=== PATIENT | female | born 1980 | race Caucasian/White ===

== ENCOUNTER → 2017-06-20 10:10 | Outpatient (CLI) | payer OTHER, SELFPAY ==
[2017-06-21 09:43] LABS: Progesterone Level 19.13 ng/mL (See Comment)
== END ==
PROVIDERS: Visit Provider Obstetrics & Gynecology
DX: N97.0 Female infertility associated with anovulation (principal)
CPT/HCPCS: 36415; 84144

== ENCOUNTER → 2017-07-23 09:49 | Outpatient (CLI) | payer OTHER, SELFPAY ==
[2017-07-24 09:47] LABS: Progesterone Level 10.53 ng/mL (See Comment)
== END ==
PROVIDERS: Visit Provider Obstetrics & Gynecology
DX: N97.0 Female infertility associated with anovulation (principal)
CPT/HCPCS: 36415; 84144

== ENCOUNTER → 2017-09-09 11:10 | Outpatient (CLI) | payer OTHER, SELFPAY ==
--- NOTE | 2017-09-09 11:10 | DT_ITS ---
This patient was seen during an EMR downtime September 02, 2017 - September 09, 2017. This patient may have a combination of paper and electronic documentation or all paper documentation. All documentation is viewable within the e-chart portion of [facility] for each patient visit.
[2017-09-09 14:18] LABS: Chlamydia Trachomatis by PCR Negative (Negative); Neisserai gonorrhoeae by PCR Negative (Negative); Probe Check PASS; Sample Adequacy Control PASS; Specimen Processing Control PASS
== END ==
PROVIDERS: Visit Provider Obstetrics & Gynecology
DX: Z11.3 Encounter for screening for infections with a predominantly sexual mode of transmission (principal)
CPT/HCPCS: 87491; 87591

== ENCOUNTER → 2017-09-19 11:05 | Outpatient (CLI) | payer OTHER, SELFPAY ==
[2017-09-19 12:37] LABS: Color, Urine Straw (Yellow); Glucose, Dipstick Normal (Normal); Ketone-Dipstick Negative (Negative); Leukocyte Esterase-Dipstick Negative /ul (Negative); Nitrite-Dipstick Negative (Negative); Occult Blood-Urine Negative /ul (Negative); Protein-Dipstick Negative (Negative); Specific Gravity, Urine 1.005 (1.002-1.030); Urine Bilirubin Dipstick Negative (Negative); Urine Clarity Sl. Cloudy (Clear); Urine Urobilinogen Normal (Normal)
[2017-09-19 12:46] LABS: Absolute Lymphocyte Count 2.21 X10^3/ul (0.83-4.51); Absolute Neutrophil Count 4.2 X10^3/uL (2.0-7.7); Basophil# 0.02 X10^3/uL; Basophil% 0.3 % (0-1); Eosinophil# 0.08 X10^3/uL; Eosinophils% 1.1 % (0-5); Hematocrit 36.4 % (37-47); Hemoglobin 12.7 g/dl (12.0-15.0); Lymphocyte # 2.21 X10^3/ul (4.0); Lymphocyte % 31.8 % (19-41); Mean Corp Hgb Conc 34.9 g/gl (32-36); Mean Corpuscular Hgb 32.1 pg (27.0-32.0); Mean Corpuscular Volume 91.9 fL (81-99); Mean Platelet Vol. 11.2 fl (6.2-12.0); Monocyte# 0.45 X10^3/uL; Monocyte% 6.5 % (0-10); Neutrophil # 4.19 X10^3/uL (2.7-7.7); Neutrophil % 60.2 % (47-70); Platelet Count 265 K/mm3 (150-450); RBC Distribution Width CV 11.6 % (11.6-14.6); RBC Distribution Width SD 38.9 fl (35.1-43.9); Red Blood Count 3.96 M/mm3 (4.2-5.4)
[2017-09-19 12:49] LABS: POSITIVE COUNT NO; POSITIVE DIFFERENTIAL NO; POSITIVE MORPHOLOGY NO
[2017-09-19 13:08] LABS: Thyroid Stim Hormone (TSH) 0.97 uIU/mL (0.358-3.74)
[2017-09-20 03:47] LABS: Prenatal RPR NONREACTIVE (NONREACTIVE)
[2017-09-20 11:20] LABS: HEPATITIS B SURFACE AG Negative (Negative); Hep C Antibodies <0.1 s/co ratio (0.0-0.9); Toxoplasma Gondii IgG < 3.0 IU/mL (0.0-7.1); Toxoplasma Gondii IgM < 3.0 AU/mL (0.0-7.9)
[2017-09-20 12:09] LABS: HIV - WCH Non-Reactive (Nonreactive); Rubella IgG 12.1 IU/mL
== END ==
PROVIDERS: Visit Provider Obstetrics & Gynecology
DX: Z34.81 Encounter for supervision of other normal pregnancy, first trimester (principal)
CPT/HCPCS: 36415; 81002; 84443; 85025; 86703; 86762; 86777; 86778; 86803; 87340

== ENCOUNTER → 2018-01-14 09:43 | Outpatient (CLI) | payer OTHER, SELFPAY ==
[2018-01-14 11:12] LABS: Hematocrit 32.2 % (37-47); Hemoglobin 11.1 g/dl (12.0-15.0); Mean Corp Hgb Conc 34.5 g/gl (32-36); Mean Corpuscular Hgb 32.1 pg (27.0-32.0); Mean Corpuscular Volume 93.1 fL (81-99); Mean Platelet Vol. 10.6 fl (6.2-12.0); Platelet Count 212 K/mm3 (150-450); RBC Distribution Width CV 12.2 % (11.6-14.6); RBC Distribution Width SD 41.1 fl (35.1-43.9); Red Blood Count 3.46 M/mm3 (4.2-5.4); White Blood Count 7.7 K/mm3 (4.4-11.0)
[2018-01-14 11:13] LABS: Scan Indicated on CBC? Y/N NO
[2018-01-14 11:14] LABS: Glucose Challenge Gest 1H 50g 93 mg/dL (70-140)
== END ==
PROVIDERS: Visit Provider Obstetrics & Gynecology
DX: Z34.83 Encounter for supervision of other normal pregnancy, third trimester (principal)
CPT/HCPCS: 82950; 85027

== ENCOUNTER 2018-04-02 05:30 | Inpatient (IN) | payer OTHER, SELFPAY ==
[2018-03-27 11:13] VITALS: BMI 46.0
[2018-04-02] VITALS (23 sets, daily range): BP systolic 93–126; BP diastolic 47–77; PULSE 65–82; RESP 14–18; TEMP 36.1–37.2; O2SAT 96–100; BMI 46.2
[2018-04-02] MEDS: Lactated Ringers 1,000 ML 999 ML IV (05:55)
[2018-04-02 06:23] LABS: Absolute Lymphocyte Count 2.29 X10^3/ul (0.83-4.51); Absolute Neutrophil Count 5.7 X10^3/uL (2.0-7.7); Basophil# 0.02 X10^3/uL; Basophil% 0.2 % (0-1); Eosinophil# 0.08 X10^3/uL; Eosinophils% 0.9 % (0-5); Hematocrit 31.3 % (37-47); Hemoglobin 10.8 g/dl (12.0-15.0); Lymphocyte # 2.29 X10^3/ul (4.0); Lymphocyte % 26.2 % (19-41); Mean Corp Hgb Conc 34.5 g/gl (32-36); Mean Corpuscular Hgb 31.7 pg (27.0-32.0); Mean Corpuscular Volume 91.8 fL (81-99); Mean Platelet Vol. 10.1 fl (6.2-12.0); Monocyte# 0.62 X10^3/uL; Monocyte% 7.1 % (0-10); Neutrophil # 5.72 X10^3/uL (2.7-7.7); Neutrophil % 65.5 % (47-70); Platelet Count 194 K/mm3 (150-450); RBC Distribution Width CV 12.1 % (11.6-14.6); RBC Distribution Width SD 39.9 fl (35.1-43.9); Red Blood Count 3.41 M/mm3 (4.2-5.4); White Blood Count 8.7 K/mm3 (4.4-11.0)
[2018-04-02 06:26] LABS: POSITIVE COUNT NO; POSITIVE DIFFERENTIAL NO; POSITIVE MORPHOLOGY NO
[2018-04-02 06:31] LABS: Prothrombin Time (Protime)PT. 12.9 SECONDS (11.7-14.9)
[2018-04-02 06:32] LABS: Partial Thromboplast Time 26.4 Seconds (24.1-36.2)
[2018-04-02] MEDS: Lactated Ringers 1,000 ML 150 ML IV (06:55)
[2018-04-02] MEDS: Sodium Citrate/Citric Acid 30 ML UDC PO (06:56)
--- NOTE | 2018-04-02 07:26 | PCM.DCCSEC ---
Discharge Diet: No Restrictions Discharge Activity: May not drive while taking narcotic pain medications., May Shower, May Take a Tub Bath Return to work on:: 05/19/18 May resume sexual activity in: 4-6 weeks Lifting Restrictions: 20 pounds Additional Activity Instructions:: Nothing in the vagina for 4-6 weeks. You may return to work/school in 6 weeks. Change Dressing in (Days):: 7 Remove Dressing in (days):: 7 Cleanse incision/area with: Soap & Water, Keep Dressing Clean & Dry Additional Instructions: If you experience any of the following, contact your healthcare provider. Bleeding that soaks a pad every hour for 2 hours Fever 100.4 or higher Unrelieved incision or abdominal pain Swelling, redness, discharge or bleeding from your incision Problems urinating (including inability to urinate or burning while urinating). Visual changes Severe headache Flu-like symptoms Pain or redness in one of both of your breasts Pain, warmth, tenderness or swelling in your legs, especially the calf area Frequent nausea and vomiting Symptoms of depression or anxiety If you experience any of the following, call 911 or go to the nearest Emergency Room. Chest pain Problems breathing Seizure activity Partial or complete paralysis of a body part, slurred speech, weakness or drooping of the face, or a sudden inability to walk or hold your balance Allergies/Adverse Reactions: Allergies No Known Allergies Allergy (Verified 04/02/18 06:17) Medications to take at Discharge Multivitamins,Therapeutic [Multivitamin] 1 tablet PO DAILY 06/03/13 Docusate Sodium [Colace] 100 mg PO BID #30 capsule 04/02/18 Naproxen [Naprosyn] 250 - 500 mg PO TID PRN PRN #30 tablet 04/02/18 Oxycodone HCl/Acetaminophen [Percocet 5-325] 1 - 2 tablet PO Q4H PRN PRN 7 Days #20 tablet 04/02/18 Polyethylene Glycol 3350 [Miralax] 17 gm PO DAILY PRN #14 packet 04/02/18 The following prescriptions were given: Oxycodone HCl/Acetaminophen [Percocet 5-325] 1 - 2 tablet PO Q4H PRN PRN 7 Days #20 tablet PRN Reason: Moderate Pain Naproxen [Naprosyn] 250 - 500 mg PO TID PRN PRN #30 tablet PRN Reason: Mild-Mod Pain (1-08/08) Polyethylene Glycol 3350 [Miralax] 17 gm PO DAILY PRN #14 packet PRN Reason: Constipation Docusate Sodium [Colace] 100 mg PO BID #30 capsule Follow-Up: Call to make an appointment with your doctor for an incision check in 1-2 weeks. You will also need a 6 week post- follow up appointment. Test results from this visit will be discussed in further detail at your follow-up appointment, if applicable. Please Follow Up With: Nanci Tong MD - [phone] When: Call to make an appointment for an incision check in 2 weeks. Primary Care Physician: Angi Kearney MD [Primary Care Provider] - Proposed Discharge Date: 04/04/18
--- NOTE | 2018-04-02 07:30 | DCINST_ITS ---
Discharge Diet: No Restrictions Discharge Activity: May not drive while taking narcotic pain medications., May Shower, May Take a Tub Bath Return to work on:: 05/19/18 May resume sexual activity in: 4-6 weeks Lifting Restrictions: 20 pounds Additional Activity Instructions:: Nothing in the vagina for 4-6 weeks. You may return to work/school in 6 weeks. Change Dressing in (Days):: 7 Remove Dressing in (days):: 7 Cleanse incision/area with: Soap & Water, Keep Dressing Clean & Dry Additional Instructions: If you experience any of the following, contact your healthcare provider. * Bleeding that soaks a pad every hour for 2 hours * Fever 100.4 or higher * Unrelieved incision or abdominal pain * Swelling, redness, discharge or bleeding from your incision * Problems urinating (including inability to urinate or burning while urinating). * Visual changes * Severe headache * Flu-like symptoms * Pain or redness in one of both of your breasts * Pain, warmth, tenderness or swelling in your legs, especially the calf area * Frequent nausea and vomiting * Symptoms of depression or anxiety If you experience any of the following, call 911 or go to the nearest Emergency Room. * Chest pain * Problems breathing * Seizure activity * Partial or complete paralysis of a body part, slurred speech, weakness or drooping of the face, or a sudden inability to walk or hold your balance Allergies/Adverse Reactions: Allergies No Known Allergies Allergy (Verified 04/02/18 06:17) Medications to take at Discharge Multivitamins,Therapeutic [Multivitamin] 1 tablet PO DAILY 06/03/13 Docusate Sodium [Colace] 100 mg PO BID #30 capsule 04/02/18 Naproxen [Naprosyn] 250 - 500 mg PO TID PRN PRN #30 tablet 04/02/18 Oxycodone HCl/Acetaminophen [Percocet 5-325] 1 - 2 tablet PO Q4H PRN PRN 7 Days #20 tablet 04/02/18 Polyethylene Glycol 3350 [Miralax] 17 gm PO DAILY PRN #14 packet 04/02/18 The following prescriptions were given: Oxycodone HCl/Acetaminophen [Percocet 5-325] 1 - 2 tablet PO Q4H PRN PRN 7 Days #20 tablet PRN Reason: Moderate Pain Naproxen [Naprosyn] 250 - 500 mg PO TID PRN PRN #30 tablet PRN Reason: Mild-Mod Pain (-08/08) Polyethylene Glycol 3350 [Miralax] 17 gm PO DAILY PRN #14 packet PRN Reason: Constipation Docusate Sodium [Colace] 100 mg PO BID #30 capsule Follow-Up: Call to make an appointment with your doctor for an incision check in 1-2 weeks. You will also need a 6 week post- follow up appointment. Test results from this visit will be discussed in further detail at your follow- up appointment, if applicable. Please Follow Up With: Nanci Tong MD - [phone] When: Call to make an appointment for an incision check in 2 weeks. Primary Care Physician: Angi Kearney MD [Primary Care Provider] - Proposed Discharge Date: 04/04/18
--- NOTE | 2018-04-02 07:45 | PLAC_PTH ---
PATIENT: GADIEL HYDE LOC: [facility] U#:[id number] AGE/SX: 37/F ROOM: WP004 RE04/02/[address]: Dr. Nanci Tong MD : 1980 BED: 1 DIS: 04/04/2018 SPEC #: [id number] RECD: 04/02/18 09:11 STATUS: LALIT LUZ #: [id number] RADHA: 04/02/18 07:[address]: Nanci Tong DEPT: SURGICAL PATHOLOGY RECD BY: Tejas Fournier ENTERED: 04/02/18 10:15 SP TYPE: PLACENTA OTHR DR: Dr. Angi Kearney MD Tissues: A - Placenta, NOS B - Fallopian tube Procedures: Surgery Specimen Level II Surgery Specimen Level V HEADER OPERATION: Repeat section; tubal ligation PRE-OP DIAGNOSIS: Baby with ventriculomegaly and dangling choroid plexus TISSUE SUBMITTED: A - Placenta, B - Fallopian tubes, suture in left tube MICROSCOPIC DIAGNOSIS A. Placenta: Placental disc - third trimester placenta (646 gm). - Focal increased intervillous and perivillous fibrin deposition. Membranes - no pathologic diagnosis. Umbilical cord - three blood vessels and no pathologic diagnosis. See comment. B. Bilateral fallopian tubes, tubal ligation: Completely transected segments of bilateral fallopian tubes, no pathologic diagnosis. SJ:moises 04/04/18 COMMENT A. Results of cytogenetic study will be reported separately. MICROSCOPIC DESCRIPTION Slides are reviewed. GROSS DESCRIPTION A - SPECIMEN: PLACENTA / CLINICAL INFORMATION: A. Weight: 3.639 kg B. Gestational Age: 39 weeks C. Sex: Female PLACENTAL WEIGHT (POST FIXATION): 646 gm PLACENTAL DIMENSIONS: 20 x 15 x 3 cm PLACENTAL SHAPE: Usual ovoid PLACENTAL WEIGHT FOR GESTATIONAL AGE: >99th percentile MEMBRANES - Present A. Insertion: Marginal B. Site of rupture from edge: At edge of placental disc and partly fragmented. C. Color of membrane: Rowley-pastrana D. Abnormalities: None UMBILICAL CORD - Present A. Color: Rowley-pastrana B. Insertion: Paracentral C. Length: 39 cm D. Diameter: 1.2 cm E. Number of vessels: Three F. Abnormalities: None PLACENTAL DISC - Present A. Color of surface: Rowley-pastrana B. surface abnormalities: None C. Maternal cotyledons: Intact with minimal tears D. Attached retro placental clot: No clot E. Cut surface: Dark red and spongy F. Lesions: None G. Separate clot: Absent SECTIONS SUBMITTED: 1. Membrane roll 2. Cord, maternal end 3. Cord, end 4. Placental disc, and maternal surfaces 5. Placental disc, and maternal surfaces 6. Placental disc, and maternal surfaces A section is also submitted for cytogenetic studies. KELSEY:moises 04/03/18 B - Received is one container labeled with the patient's name and designated bilateral fallopian tubes (left suture). The specimen consists of two tubular pieces of rowley soft tissue with the left tube identified by a suture. The left fallopian tube measures 2 cm in length and 0.7 cm in diameter and inked black. The right tube measures 2 cm in length and 0.6 cm in diameter. The entire specimen is submitted in one cassette. Both pieces will be sectioned at the time of embedding. / KELSEY:moises 04/02/18 TC:5 CPT: 71107, 77788 x2 ADDENDUM ADDENDUM ADDENDUM ADDENDUM ADDENDUM ADDENDUM ADDENDUM ADDENDUM ADDENDUM ADDENDUM 04/17/2018 09:40 ADDENDUM 04/17/2018 09:40 ADDENDUM 04/17/2018 09:40 ADDENDUM 04/17/2018 09:40 ADDENDUM 04/17/2018 09:40 CYTOGENETICS REPORT FROM locr INTERPRETATION AND COMMENTS: Karyotype: 46,XX A normal female karyotype was observed in twenty metaphases analyzed. Please see complete report in e-chart or EMR for further details
[2018-04-02] MEDS: Oxytocin 30 units/NS 500 ml 30 UNITS/500 ML IV.SOLN 167 UNITS IV (07:54)
[2018-04-02] MEDS: Methylergonovine 0.2 MG/ML Ampul IM (10:08)
[2018-04-02] MEDS: proMETHazine 25 MG/ML Syringe 12.5 MG IV (10:53)
--- NOTE | 2018-04-02 12:21 | OP.PCM_ITS ---
Operative Report Date of Procedure: 04/02/18 PROCEDURE: Repeat C section. Bilateral Partial Salpingectomy Preoperative diagnosis: 39 + wk EGA Prior C section, planned repeat C section Sterilization request Postop diagnosis: 39 + wk EGA Prior C section, planned repeat C section Sterilization request Anesthesia: Spinal, Sanford Arteaga CRNA Surgeon: Nanci Tong MD Battalion Chief: ELENA Cummings EBL 800 cc Complications: none Drains: Lloyd draining clear yellow appearing urine Fluids: replacement LR Findings: At amniotomy, clear fluid was noted. Méndez viable female in vertex presentation. Apgars 8/9, Baby weight: 8# There was a normal appearing uterus, fallopian tubes and ovaries bilaterally. There were minimal filmy adhesions between the bladder and lower uterine segment . Adhesions between the parietal peritoneum and the peritoneum of the lower uterine segment. PATH: Routine cord blood for typing collected. Routine cord gases were sent. Narrative account: After the risks, benefits and alternatives of the procedure were reviewed with the patient, informed consent was obtained. The patient was taken to the Operating room with an IV running, and placed in a seated position on the operating table for placement of the spinal. Once the spinal had been administered, she was briefly frog-legged for Lloyd catheter placement, and then repositioned to dorsal supine position with leftward displacement of the uterus, and prepped and draped in the usual sterile fashion. Once the spinal was deemed adequate, a Pfannenstiel skin incision was created using the knife (through the prior skin incision scar). The incision was carried down to the rectus fascia using the knife. The fascia was nicked in the midline. The fascial incision was extended bilaterally using curved Bojorquez scissors. The superior aspect of the fascial incision was grasped with Hermelinda clamps and tented up and the underlying rectus abdominal muscles were dissected free. In a similar manner, the inferior aspect of the facial incision was grasped with Hermelinda clamps tented up and the underlying rectus abdominal muscles were dissected free. The rectus abdominis muscles were in the midline and the peritoneum was identified and entered by blunt dissection high in the incision. There were some adhesions encountered and these were taken down as needed to access the lower uterine segment. The right rectus abdominis muscle was divided by Bovie cautery to allow better surgical exposure. The peritoneum was stretched laterally and a bladder blade was inserted. The uterine incision was then created using Metzenbaum scissors. The operators fingertips were used to extend the uterine incision by blunt dissection in a caudad- cephalad orientation . Clear fluid was noted at amniotomy. The vertex was then delivered atraumatically through the incision. The OP and nares were bulb suctioned on the abdomen. No nuchal cord was noted. The shoulders delivered easily. The cord clamped x two and cut. And the infant was handed off to the nurse awaiting delivery after briefly showing her to her parents. The baby had a spontaneous, vigorous cry. The placenta was then delivered. The uterus was exteriorized and cleared of clots and debris . The placenta [facility] to [facility] placental pathology. The uterine incision was repaired with 1 Vicryl in a running locked fashion. A second imbricating layer was then placed, using 1 Monocryl in running nonlocked fashion. Bovie cautery was used to treat any bleeding areas . Excellent hemostasis was noted. At this point the uterus was returned to the abdominal cavity. The gutters were cleared of clots and debris and the incision at the uterus was inspected. Vel was applied along the entire incision for continued hemostasis. Excellent hemostasis was noted. The right rectus abdominis muscle was repaired to intact and hemostatic with figure of 8 stitches of 1-0 Vicryl. The peritoneal edges and rectus abdominis muscles were reapproximated in the midline with a series of vertical mattress stitches of 1 Vicryl. Vel was applied to this layer. Excellent hemostasis was noted at the subfascial space Vel was dusted over this layer as well. The fascia was closed in a running nonlocked fashion with a Stratofix. The Subcutaneous fatty tissue was Bovie cauterized as needed for hemostasis. Vel was liberally dusted at this layer to prevent seroma for mation. This layer was then reapproximated in a two layer closure of running 3- 0 Vicryl to eliminate space. The skin edges were closed in a Subcuticular stitch of 4-0 Monocryl. The incision was cleansed. Cavilon, Steristrips, and Mepilex dressing were applied to the skin . The patient was then transferred to the recovery room bed in stable condition after tolerating the procedure well. Sponge, lap, needle and instrument counts correct times two. Medications given preop and intraoperatively included: Ancef was given manager marketing communications to the operating room. The patient also received Pitocin given IV after cord clamp, and Toradol 30 mg IV times one. For a complete listing of medications given preop and intraoperatively, please see the anesthesia record.
[2018-04-02] MEDS: Ketorolac 30 MG/ML Syringe IV ×2 (12:58→18:04)
[2018-04-02] MEDS: Lactated Ringers 1,000 ML 100 ML IV (15:27)
[2018-04-03] VITALS: BP 128/76; PULSE 79; RESP 18; TEMP 37.3; O2SAT 97
[2018-04-03] MEDS: Ketorolac 30 MG/ML Syringe IV ×5 (00:04→23:55)
[2018-04-03 02:00] VITALS: PULSE 87; RESP 16; O2SAT 97
[2018-04-03 04:00] VITALS: BP 107/53; PULSE 73; PULSE 82; RESP 16; TEMP 37.3; O2SAT 96; O2SAT 97
[2018-04-03] MEDS: 0.9% Saline Lock 10 ML Syringe IV ×3 (05:48→23:56)
[2018-04-03 06:20] LABS: Hematocrit 27.3 % (37-47); Hemoglobin 9.2 g/dl (12.0-15.0); Mean Corp Hgb Conc 33.7 g/gl (32-36); Mean Corpuscular Hgb 32.2 pg (27.0-32.0); Mean Corpuscular Volume 95.5 fL (81-99); Mean Platelet Vol. 10.8 fl (6.2-12.0); Platelet Count 158 K/mm3 (150-450); RBC Distribution Width CV 11.8 % (11.6-14.6); RBC Distribution Width SD 39.1 fl (35.1-43.9); Red Blood Count 2.86 M/mm3 (4.2-5.4); White Blood Count 7.2 K/mm3 (4.4-11.0)
[2018-04-03 06:21] LABS: Scan Indicated on CBC? Y/N NO
[2018-04-03 07:55] VITALS: BP 123/70; PULSE 73; RESP 18; TEMP 36.6; O2SAT 97
--- NOTE | 2018-04-03 07:57 | PCM.PN.OB ---
Subjective: POD#1 Repeat C/S and BPS Doing well. Minimal pain. Some swelling. Breast feeding. No concerns voiced. - Physical Exam General: Alert, Oriented x3, Cooperative, No apparent distress HEENT: Atraumatic Neck: Supple Abdomen: Soft - fundus firm NT inferior to umbilicus Skin: Incision - CDI Mepilex with one spot of old shadow drainage, marked w/o extension Neurological: Cranial nerves II-XII grossly intact Psych/Mental Status: Normal Affect Vital Signs Temp Pulse Resp BP Pulse Ox 99.2 F H 73 16 107/53 L 97 /03 04:00 /06/17 04:00 04/03/18 04:00 04/03/18 04:00 04/03/18 04:00 Oxygen Delivery Method Room Air Weight: 126 kg Body Mass Index (BMI) 46.2 Intake and Output for Last 24 Hours 01//19 04/05/2004/03/18 23:59 23:59 23:59 Intake Total 3210 / 3210 1745 / 1745 Output Total 2150 / 2150 1600 / 1600 Balance 1060 / 1060 145 / 145 Laboratory Tests Past 24 Hrs 01/02/19 04/06/17 06:00 05:50 WBC 7.2 RBC 2.86 L Hgb 9.2 L Hct 27.3 L MCV 95.5 MCH 32.2 H MCHC 33.7 RDW 11.8 RDW Differential 39.1 Plt Count 158 MPV 10.8 Blood Type O POSITIVE Antibody Screen NEGATIVE Medical Necessity - Tobacco Use Smoking Status: Never smoker Assessment/Plan POD#1 Repeat C/S and BPS Stable postop Inc diet and activity as tolerated. May shower. Begin po meds. S/L IV for continued toradol dosing today. D/C snyder for voiding trial. Continue care. Preoperative, iron deficiency anemia of now with superimposed acute blood loss anemia. -- Reviewed Hgb and will start on iron bid to at least daily.
[2018-04-03] MEDS: Ferrous Gluconate 324 MG Tablet PO ×2 (08:57→17:45)
[2018-04-03] MEDS: Multivitamins,Therapeutic Tablet 1 TABLET PO (08:57)
[2018-04-03 15:05] VITALS: BP 134/82; PULSE 80; RESP 20; TEMP 37.1; O2SAT 98
[2018-04-03] MEDS: oxyCODONE 5 MG Tablet PO ×2 (15:39→19:57)
[2018-04-03 20:00] VITALS: BP 134/64; PULSE 74; RESP 16; TEMP 36.8; O2SAT 98
[2018-04-04 01:10] VITALS: BP 117/69; PULSE 71; RESP 16; TEMP 36.6; O2SAT 98
[2018-04-04] MEDS: oxyCODONE 5 MG Tablet PO ×2 (04:56→09:52)
[2018-04-04] MEDS: Ketorolac 30 MG/ML Syringe IV (05:55)
[2018-04-04] MEDS: 0.9% Saline Lock 10 ML Syringe IV (05:55)
--- NOTE | 2018-04-04 07:54 | PCM.PN.OB ---
Subjective: POD#2 Repeat C/S and BPS Doing OK. Pain control adequate -- a little more sore on R side (rectus muscle there for additional surgical exposure) Baby is nursing well, cluster feeding. Would like to stay. - Physical Exam General: Alert, Oriented x3, Cooperative, No apparent distress HEENT: Atraumatic Neck: Supple Abdomen: Soft - Fundus firm tender c/w postop status, at 1-2 cm inferior to umbilicus Skin: Incision - Mepilex CDI with spot of old shadow drainage marked, no further extension Psych/Mental Status: Normal Affect Vital Signs Temp Pulse Resp BP Pulse Ox 97.9 F 71 16 117/69 98 04/04/18 01:10 04/04/18 01:10 04/04/18 01:10 04/04/18 01:10 04/04/18 01:10 Oxygen Delivery Method Room Air Weight: 126 kg Body Mass Index (BMI) 46.2 Intake and Output for Last 24 Hours 01/02/19 04//04/04/18 23:59 23:59 23:59 Intake Total 3210 / 3210 1745 / 1745 Output Total 2150 / 2150 3400 / 3400 Balance 1060 / 1060 -1655 / -1655 Medical Necessity - Tobacco Use Smoking Status: Never smoker Assessment/Plan POD#2 Repeat C/S and BPS Stable postop Reviewed incision care. Would like to stay until POD#3. Continue care. Preoperative, iron deficiency anemia of now with superimposed acute blood loss anemia. -- continue iron bid
[2018-04-04 08:00] VITALS: BP 124/64; PULSE 68; RESP 20; TEMP 36.7; O2SAT 98
[2018-04-04] MEDS: Ferrous Gluconate 324 MG Tablet PO (08:00)
[2018-04-04] MEDS: Senna/Docusate Sodium 1 Tablet PO (08:00)
[2018-04-04] MEDS: Multivitamins,Therapeutic Tablet 1 TABLET PO (08:01)
[2018-04-04] MEDS: Naproxen 250 MG Tablet PO (12:46)
[2018-04-04 15:00] VITALS: BP 135/61; PULSE 84; RESP 16; TEMP 36.7; O2SAT 97
[2018-04-04 15:28] LABS: Pathology Specimen OB SEE PATHOLOGY REPORT
[2018-04-04 15:28] LABS: Pathology Specimen OB SEE PATHOLOGY REPORT
[2018-04-04 15:38] VITALS: BP 135/61; PULSE 84; RESP 16; TEMP 36.7; O2SAT 97
--- NOTE | 2018-04-05 05:32 | PCM.DC.SUM ---
Discharge Date and Diagnosis Date of Admission: 04/02/18 Date of Discharge: 04/04/18 Hospital Course and Treatment Operations: - - Repeat low transverse section and bilateral partial salpingectomy Summary of Care Provided: The patient is a 37 year old female presents at 39+ wks for repeat C/S and BPS. Delivered on 04/02/18 a andersen viable female Ap 8/9 8 # weight. The procedure was uncomplicated . Preoperative Hgb 10.8 g/dl and postoperative Hgb 9.2 g/dl. Postop course uneventful, physical exam benign and remained afebrile with stable vital signs. She elected to go home on POD#2. - Physical Exam Vital Signs Temp Pulse Resp BP Pulse Ox 98.1 F 84 16 135/61 H 97 04/04/18 15:38 04/04/18 15:38 04/04/18 15:38 04/04/18 15:38 04/04/18 15:38 Oxygen Delivery Method Room Air Weight: 126 kg Body Mass Index (BMI) 46.2 Intake and Output for Last 24 Hours 04/03/18 04/04/18 04/05/18 23:59 23:59 23:59 Intake Total 1745 / 1745 Output Total 3400 / 3400 Balance -1655 / -1655 Discharge Diet: No Restrictions Discharge Activity: May not drive while taking narcotic pain medications., May Shower, May Take a Tub Bath Return to work on:: 05/19/18 May resume sexual activity in: 4-6 weeks Additional Activity Instructions:: Nothing in the vagina for 4-6 weeks. You may return to work/school in 6 weeks. Change Dressing in (Days):: 7 Remove Dressing in (days):: 7 Cleanse incision/area with: Soap & Water, Keep Dressing Clean & Dry Home Medications: Medications to take at Discharge Multivitamins,Therapeutic [Multivitamin] 1 tablet PO DAILY 06/03/13 Docusate Sodium [Colace] 100 mg PO BID #30 capsule 04/02/18 Naproxen [Naprosyn] 250 - 500 mg PO TID PRN PRN #30 tablet 04/02/18 Oxycodone HCl/Acetaminophen [Percocet 5-325] 1 - 2 tablet PO Q4H PRN PRN 7 Days #20 tablet 04/02/18 Polyethylene Glycol 3350 [Miralax] 17 gm PO DAILY PRN #14 packet 04/02/18 Following Prescrptions Were Given to Patient: Oxycodone HCl/Acetaminophen [Percocet 5-325] 1 - 2 tablet PO Q4H PRN PRN 7 Days #20 tablet PRN Reason: Moderate Pain Naproxen [Naprosyn] 250 - 500 mg PO TID PRN PRN #30 tablet PRN Reason: Mild-Mod Pain (-08/08) Polyethylene Glycol 3350 [Miralax] 17 gm PO DAILY PRN #14 packet PRN Reason: Constipation Docusate Sodium [Colace] 100 mg PO BID #30 capsule Primary Care Physician: Angi Kearney MD [Primary Care Provider] - Please Follow Up With: Nanci Tong MD - [phone] When: Call to make an appointment for an incision check in 2 weeks. Medical Necessity - Tobacco Use Smoking Status: Never smoker Meaningful Use Info Meaningful Use Diagnoses (Choose all that apply): None applicable
== END 2018-04-04 16:10 | disposition home or self-care (01) | DRG 784 ==
PROVIDERS: Admitting Provider Obstetrics & Gynecology; Family Provider Internal Medicine; PCP Internal Medicine; Referring Provider Obstetrics & Gynecology; Visit Provider Obstetrics & Gynecology
PROC: 10D00Z1 Extraction of Products of Conception, Low, Open Approach (ICD-10-PCS; CPT 59514; principal; 2018-04-02 07:15)
DX: O34.211 Maternal care for low transverse scar from previous cesarean delivery (principal); D62 Acute posthemorrhagic anemia; Z3A.39 39 weeks gestation of pregnancy; Z37.0 Single live birth; O99.02 Anemia complicating childbirth; O90.81 Anemia of the puerperium
CPT/HCPCS: 85025; 85027; 85610; 85730; 86850; 86900; 88302; 88307; 99218; J7120; A4216; G0378; J2405

== ENCOUNTER → 2018-05-08 08:58 | Outpatient (CLI) | payer OTHER, SELFPAY ==
[2018-05-08 16:04] VITALS: BMI 46.2
[2018-05-09 09:02] LABS: Bacteria 0 SEEN /hpf (None Seen); Mucous, Urine 0 SEEN /hpf (<or=2+)
[2018-05-09 09:50] LABS: Color, Urine Yellow (Yellow); Glucose, Dipstick Normal (Normal); Ketone-Dipstick Negative (Negative); Leukocyte Esterase-Dipstick 25 /ul (Negative); Nitrite-Dipstick Negative (Negative); Occult Blood-Urine 10 /ul (Negative); Protein-Dipstick Negative (Negative); Specific Gravity, Urine 1.005 (1.002-1.030); Urine Bilirubin Dipstick Negative (Negative); Urine Clarity Clear (Clear); Urine Urobilinogen Normal (Normal)
[2018-05-09 09:58] LABS: Red Blood Cells-Urine 0-5 SEEN /hpf (0-5); Squamous Epithelial Cells - UA 0-5 SEEN /hpf (5-10); White Blood Cells 0-5 SEEN /hpf (0-5)
== END ==
PROVIDERS: Family Provider Internal Medicine; PCP Internal Medicine; Referring Provider Internal Medicine; Visit Provider Internal Medicine
DX: R50.9 Fever, unspecified (principal)
CPT/HCPCS: 81001

== ENCOUNTER → 2018-05-08 16:32 | Outpatient (CLI) | payer OTHER, SELFPAY ==
[2018-05-08 16:04] VITALS: BMI 46.2
[2018-05-08 17:22] LABS: Hematocrit 38.2 % (37-47); Hemoglobin 12.3 g/dl (12.0-15.0); Mean Corp Hgb Conc 32.2 g/gl (32-36); Mean Corpuscular Hgb 30.1 pg (27.0-32.0); Mean Corpuscular Volume 93.6 fL (81-99); Platelet Count 198 K/mm3 (150-450); RBC Distribution Width CV 12.4 % (11.6-14.6); RBC Distribution Width SD 41.1 fl (35.1-43.9); Red Blood Count 4.08 M/mm3 (4.2-5.4); White Blood Count 5.6 K/mm3 (4.4-11.0)
[2018-05-08 18:13] LABS: Eosinophil 1 % (0-5); Total Cells Counted 100 (MANUAL DIFF)
[2018-05-08 18:14] LABS: POSITIVE COUNT NO; POSITIVE DIFFERENTIAL NO; Platelet Estimate ADEQUATE (ADEQ); Red Cell Morphology NORM C+C NORMAL (NORM C&C)
[2018-05-08 18:15] LABS: POSITIVE MORPHOLOGY YES
[2018-05-09 14:02] LABS: Differential Indicated MANUAL DIFF
[2018-05-09 14:03] LABS: Neutrophil-Band 1 % (0-5); Neutrophil-Segmented 34 % (47-70)
[2018-05-09 14:04] LABS: Lymphocyte 45 % (19-41)
[2018-05-09 14:05] LABS: Monocyte 19 % (0-10)
[2018-05-09 14:06] LABS: Absolute Neutrophil Count 1.9 X10^3/uL (2.0-7.7); Reactive Lymphocyte 2+
[2018-05-12 09:44] LABS: Pathologist Review Reviewed
== END ==
PROVIDERS: Family Provider Internal Medicine; PCP Internal Medicine; Referring Provider Internal Medicine; Visit Provider Internal Medicine
DX: D64.9 Anemia, unspecified (principal)
CPT/HCPCS: 36415; 85025

== ENCOUNTER → 2018-05-09 10:50 | Outpatient (CLI) | payer OTHER, SELFPAY ==
[2018-05-08 16:04] VITALS: BMI 46.2
--- NOTE | 2018-05-09 10:52 | CT_ITS ---
STUDY: CT ABDOMEN AND PELVIS WITH CONTRAST REASON FOR EXAM: Female, 37 years old. Fever. Abdominal pain. RADIATION DOSAGE (If Supplied By Facility): CTDIvol = ( 18.74 ) mGy, DLP = ( 1335.61 ) mGycm TECHNIQUE: Transaxial images were obtained from the dome of the diaphragm to the symphysis pubis without oral contrast. 100ML ml of Isovue 300 contrast was administered. Sagittal and coronal images were reconstructed. Individualized dose optimization techniques were used for this CT. COMPARISON: None. FINDINGS: The visualized lung bases are unremarkable. The visualized portions of the heart are within normal limits. There is a 4.2 cm x 4.5 cm hypodense nodule with mild peripheral enhancement in the posterior right lobe of the liver. This most likely represents an hepatic hemangioma. Normal gallbladder and extrahepatic biliary system. Normal spleen. Normal pancreas. Normal bilateral adrenal glands. Normal right kidney. Normal left kidney. Normal visualized stomach. Normal small intestine. Small lymph nodes are seen in the mesentery in the right lower quadrant. This may represent mesenteric adenitis. Normal colon. The appendix is visualized and appears normal. Normal abdominal aorta. Normal inferior vena cava. Normal retroperitoneum. Normal urinary bladder. There is a small umbilical hernia containing fat. There is evidence of increased markings in the subcutaneous fat overlying the lower anterior abdominal and pelvic wall. This may represent either postoperative changes or contusion. Clinical correlation is recommended. Normal osseous structures. CT/Abdomen/Pelvis WITH Contrast IMPRESSION: Increased markings in the subcutaneous fat in the lower anterior abdominal and upper pelvic wall. Findings suggestive of a a hepatic hemangioma. Electronically Signed: Berlin Gama MD at 13:45 EST , Service support ,
== END ==
PROVIDERS: Family Provider Internal Medicine; PCP Internal Medicine; Referring Provider Internal Medicine; Visit Provider Internal Medicine
DX: Z00.00 Encounter for general adult medical examination without abnormal findings (principal); D72.89 Other specified disorders of white blood cells; R50.9 Fever, unspecified; Z98.891 History of uterine scar from previous surgery
CPT/HCPCS: 36415; 74177; 87040; Q9967

== ENCOUNTER → 2018-05-16 09:59 | Outpatient (CLI) | payer OTHER, SELFPAY ==
[2018-05-08 16:04] VITALS: BMI 46.2
[2018-05-16 10:52] LABS: Absolute Lymphocyte Count 5.07 X10^3/ul (0.83-4.51); Absolute Neutrophil Count 1.4 X10^3/uL (2.0-7.7); Basophil# 0.22 X10^3/uL; Eosinophil# 0.03 X10^3/uL; Eosinophils% 0.4 % (0-5); Hematocrit 35.1 % (37-47); Hemoglobin 11.4 g/dl (12.0-15.0); Lymphocyte # 5.07 X10^3/ul (4.0); Lymphocyte % 70.1 % (19-41); Mean Corp Hgb Conc 32.5 g/gl (32-36); Mean Corpuscular Hgb 30.2 pg (27.0-32.0); Mean Corpuscular Volume 93.1 fL (81-99); Mean Platelet Vol. 9.9 fl (6.2-12.0); Monocyte# 0.51 X10^3/uL; Monocyte% 7.1 % (0-10); Neutrophil # 1.39 X10^3/uL (2.7-7.7); Neutrophil % 19.3 % (47-70); Platelet Count 210 K/mm3 (150-450); RBC Distribution Width CV 13.4 % (11.6-14.6); RBC Distribution Width SD 43.7 fl (35.1-43.9); Red Blood Count 3.77 M/mm3 (4.2-5.4); White Blood Count 7.2 K/mm3 (4.4-11.0)
[2018-05-16 10:54] LABS: Differential Indicated SCAN CRITERIA MET; POSITIVE COUNT NO; POSITIVE DIFFERENTIAL YES; POSITIVE MORPHOLOGY YES
[2018-05-16 11:05] LABS: Internal QC Validated? YES +Cl - CLEAR BKGD; Monotest Negative (Negative)
[2018-05-16 11:20] LABS: AST(SGOT) 45 U/L (15-37); Alanine Aminotransfer ALT/SGPT 52 U/L (13-56); Albumin, Serum 3.3 g/dL (3.2-5.0); Alkaline Phosphatase 75 U/L (45-117); Anion Gap 8 (5-15); BUN 11 mg/dL (7-18); BUN/Creat Ratio 10.6 RATIO (10-20); Calcium,Total 8.2 mg/dL (8.5-10.1); Chloride 103 mmol/L (98-107); Creatinine, Serum 1.04 mg/dL (0.55-1.02); EST Glomerular Filtration Rate 63 mL/min (>60); Est Glom Filt Rate - Afr Amer 76 mL/min (>60); Globulin 3.4 g/dL (2.2-4.2); Glucose 101 mg/dL (74-106); Potassium 4.4 mmol/L (3.5-5.1); Protein, Total 6.7 g/dL (6.4-8.2); Sodium Level 138 mmol/L (136-145)
[2018-05-16 11:44] LABS: Differential Comment SCANNED; Reactive Lymphocyte 2+
== END ==
PROVIDERS: Family Provider Internal Medicine; PCP Internal Medicine; Referring Provider Internal Medicine; Visit Provider Internal Medicine
DX: R50.9 Fever, unspecified (principal)
CPT/HCPCS: 36415; 80053; 85025; 86308

== ENCOUNTER → 2018-05-26 09:55 | Outpatient (CLI) | payer OTHER, SELFPAY ==
[2018-05-16 15:25] VITALS: BMI 46.2
[2018-05-28 12:56] LABS: HPV Reflexed? NOT INDICATED
== END ==
PROVIDERS: Visit Provider Obstetrics & Gynecology
DX: Z12.4 Encounter for screening for malignant neoplasm of cervix (principal)
CPT/HCPCS: 88175; G0145

== ENCOUNTER → 2019-03-02 14:26 | Outpatient (CLI) | payer OTHER, SELFPAY ==
[2019-03-02 13:27] VITALS: BMI 46.2
[2019-03-02 15:42] LABS: Hemoglobin A1c 5.1 % (4.2-6.3)
[2019-03-02 16:20] LABS: ALB/GLOB Ratio 1.1 RATIO (0.9-2.4); AST(SGOT) 20 U/L (15-37); Alanine Aminotransfer ALT/SGPT 27 U/L (13-56); Albumin, Serum 3.8 g/dL (3.2-5.0); Alkaline Phosphatase 59 U/L (45-117); Anion Gap 9 (5-15); BUN 11 mg/dL (7-18); BUN/Creat Ratio 12.4 RATIO (10-20); Calcium,Total 8.8 mg/dL (8.5-10.1); Chloride 104 mmol/L (98-107); Cholesterol 218 mg/dL (200); Creatinine, Serum 0.88 mg/dL (0.55-1.02); EST Glomerular Filtration Rate 76 mL/min (>60); Est Glom Filt Rate - Afr Amer 92 mL/min (>60); Globulin 3.4 g/dL (2.2-4.2); Glucose 78 mg/dL (74-106); High Density Lipoprotein 76 mg/dL; Potassium 3.7 mmol/L (3.5-5.1); Protein, Total 7.2 g/dL (6.4-8.2); Sodium Level 139 mmol/L (136-145); Triglycerides 94 mg/dL; Very Low Density Lipoprotein 19 mg/dL (5-40)
== END ==
PROVIDERS: Family Provider Internal Medicine; PCP Internal Medicine; Referring Provider Internal Medicine; Visit Provider Internal Medicine
DX: E66.01 Morbid (severe) obesity due to excess calories (principal); Z68.42 Body mass index [BMI] 45.0-49.9, adult
CPT/HCPCS: 36415; 80053; 80061; 83036

== ENCOUNTER 2019-04-28 10:30 | Outpatient (RCR) | payer OTHER, SELFPAY ==
[2019-03-02 13:27] VITALS: BMI 46.2
== END 2019-05-01 23:59 ==
LOC: NS 10:30
PROVIDERS: Family Provider Internal Medicine; PCP Internal Medicine; Visit Provider Internal Medicine
DX: Z71.3 Dietary counseling and surveillance (principal); E66.01 Morbid (severe) obesity due to excess calories; Z68.42 Body mass index [BMI] 45.0-49.9, adult
CPT/HCPCS: 97802; 97803

== ENCOUNTER → 2019-05-07 13:54 | Outpatient (CLI) | payer OTHER, SELFPAY ==
[2019-05-07 13:32] VITALS: BMI 46.2
--- NOTE | 2019-05-07 13:54 | RAD_ITS ---
STUDY: X-RAY - PELVIS AND RIGHT HIP REASON FOR EXAM: Female, 38 years old. Right hip pain TECHNIQUE: 3 views of the pelvis and hip. COMPARISON: None. FINDINGS: There is a non-specific bowel gas pattern. Normal visualized soft tissue structures. Normal bilateral iliac wings, sacroiliac joints and visualized sacrum. Normal bilateral superior and inferior pubic rami. Evidence of osteitis pubis with subchondral cyst noted on both halves of the symphysis, larger on the left than the right. Normal bilateral ischial tuberosities. Normal visualized femoral head. Normal acetabulum. Normal hip joint. RAD/HIP, UNI W/ Pelvis 2-3 Views IMPRESSION: Normal right hip Osteitis pubis with subchondral cysts noted in the superior aspects of the symphysis pubis larger on the left than the right Electronically Signed: Miguel De La Rosa MD at 9:30 EST , Service support ,
== END ==
PROVIDERS: PCP Internal Medicine; Referring Provider Physician Assistant; Visit Provider Physician Assistant
DX: M25.551 Pain in right hip (principal)
CPT/HCPCS: 73502

== ENCOUNTER 2019-05-26 13:25 | Outpatient (RCR) | payer OTHER, SELFPAY ==
[2019-04-28 10:55] VITALS: BMI 46.2
[2019-05-07 13:32] VITALS: BMI 46.2
== END 2019-05-26 23:59 | disposition home or self-care (01) ==
LOC: NS 13:25
PROVIDERS: Family Provider Internal Medicine; PCP Internal Medicine; Visit Provider Internal Medicine
DX: Z71.3 Dietary counseling and surveillance (principal); E66.01 Morbid (severe) obesity due to excess calories; Z68.42 Body mass index [BMI] 45.0-49.9, adult
CPT/HCPCS: 97803

== ENCOUNTER → 2020-03-17 10:44 | Outpatient (CLI) | payer OTHER, SELFPAY ==
[2020-03-08 14:38] VITALS: BMI 46.7
[2020-03-17 12:47] LABS: Absolute Lymphocyte Count 2.83 X10^3/uL (0.83-4.51); Absolute Neutrophil Count 3.1 X10^3/uL (2.0-7.7); Basophil# 0.04 X10^3/uL; Basophil% 0.6 % (0-1); Eosinophil# 0.06 X10^3/uL; Eosinophils% 0.9 % (0-5); Hematocrit 40.4 % (37-47); Hemoglobin 13.7 g/dL (12.0-15.0); Lymphocyte # 2.83 X10^3/ul (4.0); Lymphocyte % 44.1 % (19-41); Mean Corp Hgb Conc 33.9 g/dL (32-36); Mean Corpuscular Volume 91.4 fL (81-99); Mean Platelet Vol. 10.9 fl (6.2-12.0); Monocyte# 0.36 X10^3/uL; Monocyte% 5.6 % (0-10); NRBC Flagged by Analyzer 0 % (0-5); Neutrophil # 3.11 X10^3/uL (2.7-7.7); Neutrophil % 48.6 % (47-70); Platelet Count 287 K/mm3 (150-450); RBC Distribution Width CV 11.6 % (11.6-14.6); RBC Distribution Width SD 38.9 fl (35.1-43.9); Red Blood Count 4.42 M/mm3 (4.2-5.4); White Blood Count 6.4 K/mm3 (4.4-11.0)
[2020-03-17 12:53] LABS: Cholesterol 189 mg/dL (200); Glucose 86 mg/dL (74-106); High Density Lipoprotein 77 mg/dL; Thyroid Stim Hormone (TSH) 2.64 uIU/mL (0.358-3.74); Triglycerides 84 mg/dL; Very Low Density Lipoprotein 17 mg/dL (5-40)
[2020-03-17 13:16] LABS: Vitamin D,25 Hydroxy 17.1 ng/mL
== END ==
PROVIDERS: PCP Internal Medicine; Referring Provider Obstetrics & Gynecology; Visit Provider Obstetrics & Gynecology
DX: N93.9 Abnormal uterine and vaginal bleeding, unspecified (principal); Z13.220 Encounter for screening for lipoid disorders; Z13.1 Encounter for screening for diabetes mellitus; Z13.21 Encounter for screening for nutritional disorder
CPT/HCPCS: 36415; 80061; 82306; 82947; 84443; 85025

== ENCOUNTER 2021-06-01 12:51 | Outpatient (CLI) | payer OTHER, SELFPAY ==
--- NOTE | 2021-06-01 12:54 | BI_ITS ---
MAMMOGRAPHY - BILATERAL SCREENING REASON FOR EXAM: Female, 40 years old. Routine annual screening examination. PERTINENT HISTORY: Grandmother with breast cancer. TECHNIQUE: Digital bilateral breast wilma (3D mammographic acquisition) in the CC and MLO projections. 2-D mediolateral oblique (MLO) and craniocaudad (CC) views of both breasts were obtained. CAD: Full Field Digital Mammography with Computer Added Detection was performed. COMPARISON: None. Baseline examination. FINDINGS: Breast Composition: The breasts are almost entirely fatty. There are no dominant masses or suspicious calcifications. No other significant abnormalities are identified. BI/SCRN MAMM (CAD)W/WILMA BILAT IMPRESSION: Negative screening mammogram. Yearly followup mammogram recommended. (A) ASSESSMENT CATEGORY: BIRADS Category 1: Negative. A letter regarding these results will be sent to the patient by the facility within 30 days. Approximately 10% of breast cancers are not detected by mammography. A normal mammogram should not delay biopsy of a clinically suspicious abnormality. [id number] Electronically Signed: Berlin Gama MD at 13:41 EST ,
[2021-06-07 13:23] LABS: HPV APTIMA, High Risk Negative (Negative)
== END 2021-06-01 23:59 | disposition home or self-care (01) ==
PROVIDERS: Obstetrics & Gynecology; PCP Family Medicine; Referring Provider Obstetrics & Gynecology; Visit Provider Obstetrics & Gynecology
DX: Z12.31 Encounter for screening mammogram for malignant neoplasm of breast (principal)
CPT/HCPCS: 77063; 77067; 87624; 88175; G0145

== ENCOUNTER → 2021-07-27 | Outpatient (CLI) | payer OTHER, SELFPAY ==
--- NOTE | 2021-07-27 12:24 | US_ITS ---
STUDY: ULTRASOUND OF THE FEMALE PELVIS - COMPLETE REASON FOR EXAM: Female, 40 years old. Abnormal uterine bleeding LMP: 06/13/2021, continuous menses x1 month TECHNIQUE: Transabdominal and Transvaginal TECHNICAL QUALITY: Adequate. COMPARISON: None. FINDINGS: The uterus is anteverted and is in a midline position. The uterus measures 13.1 x 7.1 x 5.4 cm. Normal uterine cervix. The upper endometrium is not well visualized. The lower endometrium measures 6 mm in thickness, and is hyperechoic. There is no demonstrated endometrial mass. 3 x 2.4 x 2.4 cm fibroid in the uterine fundus. I.U.D. - The patient does not have an I.U.D. The right ovary is visualized. The right ovary measures 1.6 x 3.2 x 2.5 cm. There is no right ovarian cyst or ovarian mass. There is no visualized right adnexal mass or complex lesion. There is normal arterial and normal venous vascularity. The left ovary is visualized. The left ovary measures 2.2 x 1.7 x 1.3 cm. There is no left ovarian cyst or ovarian mass. There is no visualized left adnexal mass or complex lesion. There is normal arterial and normal venous vascularity. There is no fluid in the cul-de-sac. The pre void volume of the bladder was 360 ml. Polycystic ovary disease: No. US/Pelvic (Non ) IMPRESSION: At least one fibroid noted in the uterine fundus measuring 3 cm. Director [employer] notes difficulty imaging the entire uterus due to size. This includes Limited visualization of the upper endometrium. No other abnormal finding in the pelvis. Electronically Signed: Jos Irene MD at 7:02 EDT ,
--- NOTE | 2021-07-27 12:24 | US_ITS ---
STUDY: ULTRASOUND OF THE FEMALE PELVIS - COMPLETE REASON FOR EXAM: Female, 40 years old. Abnormal uterine bleeding LMP: 06/13/2021, continuous menses x1 month TECHNIQUE: Transabdominal and Transvaginal TECHNICAL QUALITY: Adequate. COMPARISON: None. FINDINGS: The uterus is anteverted and is in a midline position. The uterus measures 13.1 x 7.1 x 5.4 cm. Normal uterine cervix. The upper endometrium is not well visualized. The lower endometrium measures 6 mm in thickness, and is hyperechoic. There is no demonstrated endometrial mass. 3 x 2.4 x 2.4 cm fibroid in the uterine fundus. I.U.D. - The patient does not have an I.U.D. The right ovary is visualized. The right ovary measures 1.6 x 3.2 x 2.5 cm. There is no right ovarian cyst or ovarian mass. There is no visualized right adnexal mass or complex lesion. There is normal arterial and normal venous vascularity. The left ovary is visualized. The left ovary measures 2.2 x 1.7 x 1.3 cm. There is no left ovarian cyst or ovarian mass. There is no visualized left adnexal mass or complex lesion. There is normal arterial and normal venous vascularity. There is no fluid in the cul-de-sac. The pre void volume of the bladder was 360 ml. Polycystic ovary disease: No. US/Transvaginal Non- IMPRESSION: At least one fibroid noted in the uterine fundus measuring 3 cm. 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 This includes Limited visualization of the upper endometrium. No other abnormal finding in the pelvis. Electronically Signed: Jos Irene MD at 7:02 EDT ,
[2021-07-27 15:47] LABS: Absolute Lymphocyte Count 2.82 X10^3/uL (0.83-4.51); Absolute Neutrophil Count 3.2 X10^3/uL (2.0-7.7); Basophil# 0.03 X10^3/uL; Basophil% 0.5 % (0-1); Eosinophil# 0.07 X10^3/uL; Eosinophils% 1.1 % (0-5); Hematocrit 40.9 % (37-47); Hemoglobin 13.6 g/dL (12.0-15.0); Lymphocyte # 2.82 X10^3/ul (0.83-4.51); Lymphocyte % 43.5 % (19-41); Mean Corp Hgb Conc 33.3 g/dL (32-36); Mean Corpuscular Hgb 30.5 pg (27.0-32.0); Mean Corpuscular Volume 91.7 fL (81-99); Mean Platelet Vol. 11.3 fl (6.2-12.0); Monocyte# 0.34 X10^3/uL; Monocyte% 5.2 % (0-10); NRBC Flagged by Analyzer 0 % (0-5); Neutrophil # 3.21 X10^3/uL (2.7-7.7); Neutrophil % 49.5 % (47-70); Platelet Count 281 K/mm3 (150-450); RBC Distribution Width CV 11.8 % (11.6-14.6); RBC Distribution Width SD 39.7 fl (35.1-43.9); Red Blood Count 4.46 M/mm3 (4.2-5.4); White Blood Count 6.5 K/mm3 (4.4-11.0)
[2021-07-27 15:59] LABS: ALB/GLOB Ratio 0.9 RATIO (0.9-2.4); AST(SGOT) 16 U/L (15-37); Alanine Aminotransfer ALT/SGPT 27 U/L (13-56); Albumin, Serum 3.5 g/dL (3.2-5.0); Alkaline Phosphatase 45 U/L (45-117); Anion Gap 4 (5-15); BUN 14 mg/dL (7-18); BUN/Creat Ratio 14.6 RATIO (10-20); Calcium,Total 8.9 mg/dL (8.5-10.1); Chloride 104 mmol/L (98-107); Creatinine, Serum 0.96 mg/dL (0.55-1.02); EST Glomerular Filtration Rate 68 mL/min (>60); Est Glom Filt Rate - Afr Amer 83 mL/min (>60); Globulin 3.8 g/dL (2.2-4.2); Glucose 78 mg/dL (74-106); Potassium 3.9 mmol/L (3.5-5.1); Protein, Total 7.3 g/dL (6.4-8.2); Sodium Level 137 mmol/L (136-145)
== END | disposition home or self-care (01) ==
LOC: US 12:23
PROVIDERS: PCP Family Medicine; Referring Provider Obstetrics & Gynecology; Visit Provider Obstetrics & Gynecology
DX: N93.9 Abnormal uterine and vaginal bleeding, unspecified (principal)
CPT/HCPCS: 36415; 76830; 76856; 80053; 85025

== ENCOUNTER 2021-08-10 13:30 | Outpatient (RCR) | payer OTHER, SELFPAY ==
--- NOTE | 2021-07-28 07:43 | HP.OTEVAL ---
Patient's Visit Information GADIEL HYDE is a 40 year old F, referred to Occupational Therapy by Dr. Angie Hart MD, with a diagnosis of wrist pain. Date of Evaluation: 07/27/21 Occupational Therapist: Isabelle Allen, OTR/L, CHT - Subjective Pt. is a 40 y/o female who was referred for B wrist pain by Dr. Hart. Pt. voicing specific concerns of bilateral thumb pain. Both thumb pain started 2 months ago when restraining an animal. Mostly thumb MP joints when she hits or pushes on it. Just this week noticed pain even at rest. Has not needed to take pain meds, ice, or topical meds. Bought a hand splint, but makes work difficult because of its size. Pt. would like to return to [facility]. - ADLs Comments: pt. reported no difficulties with day to day tasks. 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 - ROM CMC: R 30/10 L20/10 MP: R 15/60 L5/60* IP: R 60* L70 Radial Abduction: R 45* L 45* ROM Comments: Visual observation pt. has ROM in BUE WNL - Strength Refund Specialist: R 73# L 70# Lateral Pinch: R 15# L 15# Tripod Pinch: R 13# L 23# Tip-to-Tip Pinch: R12# L 20# Strength Comments: pt. demo'd good UB strength through shoulders and elbows. R hand dominant. - Sensation Sensation Comments: pt. reported no numbness or tingling. - Quick DASH-Disab of Arm,Shoulder& Hand Quick DASH Score: 6.6650 - Goals Goal:: Pt. to improve tripod and lateral pinch strength to 20# with no thumb instability noted to improve FM work tasks by dc. Goal:: Pt. will report pain less than 3/10 in thumb area during work 5/7 days by dc Goal:: Pt. will demonstrate proper c of thumb during lifting, carrying, writing tasks by dc. Pt will demo understanding of joint protection giovany. and ad. eq. to decrease stress on joints/tendon to further injury by d/c Goal:: pt will demo understanding of orthosis use and precautions by end of 1st session. pt will demo IND. doffing donning of orthosis by end of 1st session. - Rehabilitation General Assessment: Pt. was referred for B wrist pain by Dr. Hart. Pt. reporting that it is her thumb areas that have pain. Pt. is being proactive and trying to fix thumb pain issue now before getting worse. Educated pt. on correct c position for thumb with lifting, writing and carrying items. Educated pt. HEP and cleaning of orthoses. 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 Her pain has also interfered with her sleep. She will benefit from skilled OT services to check orthotic use/wearing/decreasing pain to decrease difficulty with work. Will trial once a week, as pt. states she has a $100 co-pay. Pt. demo'd understanding and agreeable to POC. Therapy session session was directly supervised and doc. reviewed and approved by Isabelle Allen OTR/L, CHT. Rehabilitation Potential: Good - Anticipated Interventions Strengthening, Massage, Modalities, Orthoses, Joint Protection/Energy Conservation, Ergonomic Education Other Interventions: heat, massage. CHT provided a custom thumb orthoses - Visit Plan Frequency: 2x /Week Duration: 6 Weeks TEXT: Thank you for the opportunity to evaluate your patient. For Medicare and Medicare HMO plans, please review the plan of care and approve it. It will need to be FAXED BACK to us at [phone] for Medicare purposes. Please let me know if there are questions or concerns regarding this plan of care. Physician Signature: Date:
--- NOTE | 2022-01-02 13:34 | HP.OT.NRP ---
GADIEL HYDE was seen in my office for initial evaluation on 07/27/21. The following Plan of Care was established for this patient: Initial Frequency: 2x /Week Initial Duration: 6 Weeks Plan: pt. stating she will call in for next therapy appointment. S/OT recommended that pt. stop in with orthotic to have CHT readjust/size for comfort with handwriting at work. Anticipated Interventions: Strengthening, Massage, Modalities, Orthoses, Joint Protection/Energy Conservation, Ergonomic Education Other Interventions: heat, massage. CHT provided a custom thumb orthoses This patient was last seen in our office 08/10/21. Pertinent comments regarding their Occupational therapy will appear below: pt was seen for 2 OT sessions- no further apts. scheduled pt d.c due to time lapse in services. At this point I will be discontinuing this patient from occupational therapy. I would be happy to see this patient again in the future if found appropriate by the physician. Thank you! Isabelle Allen, OTR/L, CHT
== END 2021-08-10 19:00 | disposition home or self-care (01) ==
LOC: OT 13:30
PROVIDERS: PCP Family Medicine; Referring Provider Family Medicine; Visit Provider Family Medicine
DX: M25.539 Pain in unspecified wrist (principal); M79.646 Pain in unspecified finger(s)
CPT/HCPCS: 97110; 97140; 97165; 97760

== ENCOUNTER → 2022-03-29 | Outpatient (CLI) | payer OTHER, SELFPAY ==
--- NOTE | 2022-03-29 13:02 | US_ITS ---
STUDY: ULTRASOUND OF THE FEMALE PELVIS - COMPLETE REASON FOR EXAM: Female, 41 years old. Pelvic pain and fullness, LMP 02/25/2022 TECHNIQUE: Transabdominal and Transvaginal TECHNICAL QUALITY: Limited. Examination limited due to a combination of factors including obesity and bowel gas. COMPARISON: 07/27/2021 FINDINGS: The uterus is anteverted and is tilted to the left side of the pelvis. The uterus measures 10.8 x 5.2 x 5.5 cm. Normal uterine cervix. The endometrium measures 6 mm in thickness, and is hyperechoic. There is no demonstrated endometrial mass. There is a 2.4 x 1.8 x 2.1 cm fibroid. I.U.D. - The patient does not have an I.U.D. The right ovary is not visualized. The left ovary is visualized. The left ovary measures 2.9 x 2.8 x 1.8 cm. There is no left ovarian cyst or ovarian mass. There is no visualized left adnexal mass or complex lesion. There is normal arterial and normal venous vascularity. There is no fluid in the cul-de-sac. The bladder is sonographically normal US/Pelvic (Non ) IMPRESSION: Stable small uterine fibroid No suspicious cystic mass or free fluid though the right ovary is not visualized. Electronically Signed: Miguel De La Rosa MD at 8:42 EST ,
--- NOTE | 2022-03-29 13:02 | US_ITS ---
STUDY: ULTRASOUND OF THE FEMALE PELVIS - COMPLETE REASON FOR EXAM: Female, 41 years old. Pelvic pain and fullness, LMP 02/25/2022 TECHNIQUE: Transabdominal and Transvaginal TECHNICAL QUALITY: Limited. Examination limited due to a combination of factors including obesity and bowel gas. COMPARISON: 07/27/2021 FINDINGS: The uterus is anteverted and is tilted to the left side of the pelvis. The uterus measures 10.8 x 5.2 x 5.5 cm. Normal uterine cervix. The endometrium measures 6 mm in thickness, and is hyperechoic. There is no demonstrated endometrial mass. There is a 2.4 x 1.8 x 2.1 cm fibroid. I.U.D. - The patient does not have an I.U.D. The right ovary is not visualized. The left ovary is visualized. The left ovary measures 2.9 x 2.8 x 1.8 cm. There is no left ovarian cyst or ovarian mass. There is no visualized left adnexal mass or complex lesion. There is normal arterial and normal venous vascularity. There is no fluid in the cul-de-sac. The bladder is sonographically normal US/Transvaginal Non- IMPRESSION: Stable small uterine fibroid No suspicious cystic mass or free fluid though the right ovary is not visualized. Electronically Signed: Miguel De La Rosa MD at 8:42 EST ,
== END | disposition home or self-care (01) ==
LOC: US 12:58
PROVIDERS: PCP Family Medicine; Referring Provider Obstetrics & Gynecology; Visit Provider Obstetrics & Gynecology
DX: D25.9 Leiomyoma of uterus, unspecified (principal)
CPT/HCPCS: 76830; 76856

== ENCOUNTER → 2022-06-21 | Outpatient (CLI) | payer OTHER, SELFPAY ==
--- NOTE | 2022-06-21 12:14 | BI_ITS ---
MAMMOGRAPHY - BILATERAL SCREENING REASON FOR EXAM: Female, 41 years old. Routine annual screening examination. PERTINENT HISTORY: Grandmother with breast cancer. TECHNIQUE: Digital bilateral breast wilma (3D mammographic acquisition) in the CC and MLO projections. 2-D mediolateral oblique (MLO) and craniocaudad (CC) views of both breasts were obtained. CAD: Full Field Digital Mammography with Computer Added Detection was performed. COMPARISON: Comparison is made with prior study dated June 01, 2021. FINDINGS: Breast Composition: The breasts are almost entirely fatty. There are no dominant masses or suspicious calcifications. Stable small benign-appearing bilateral axillary lymph nodes. No other significant abnormalities are identified. There has been no significant change since the prior study. BI/SCRN MAMM (CAD)W/WILMA BILAT IMPRESSION: Stable bilateral screening mammogram. Yearly follow-up mammogram recommended. (A) ASSESSMENT CATEGORY: BIRADS Category 2: Benign. A letter regarding these results will be sent to the patient by the facility within 30 days. Approximately 10% of breast cancers are not detected by mammography. A normal mammogram should not delay biopsy of a clinically suspicious abnormality. [id number] Electronically Signed: Berlin Gama MD at 14:10 EDT ,
[2022-06-21 14:45] LABS: Hemoglobin A1c 5.1 % (3.8-5.6)
[2022-06-21 14:46] LABS: AST(SGOT) 18 U/L (15-37); Alanine Aminotransfer ALT/SGPT 31 U/L (13-56); Albumin, Serum 3.9 g/dL (3.2-5.0); Alkaline Phosphatase 58 U/L (45-117); Anion Gap 5 (5-15); BUN 11 mg/dL (7-18); BUN/Creat Ratio 11.2 RATIO (10-20); Calcium,Total 9.8 mg/dL (8.5-10.1); Chloride 106 mmol/L (98-107); Creatinine, Serum 0.98 mg/dL (0.55-1.02); EST Glomerular Filtration Rate 66 mL/min (>60); Est Glom Filt Rate - Afr Amer 80 mL/min (>60); Globulin 3.9 g/dL (2.2-4.2); Glucose 87 mg/dL (74-106); Potassium 3.8 mmol/L (3.5-5.1); Protein, Total 7.8 g/dL (6.4-8.2); Sodium Level 141 mmol/L (136-145); Thyroid Stim Hormone (TSH) 1.94 uIU/mL (0.358-3.74)
== END | disposition home or self-care (01) ==
PROVIDERS: PCP Family Medicine; Referring Provider Obstetrics & Gynecology; Visit Provider Obstetrics & Gynecology
DX: Z12.31 Encounter for screening mammogram for malignant neoplasm of breast (principal); E66.9 Obesity, unspecified; Z13.29 Encounter for screening for other suspected endocrine disorder
CPT/HCPCS: 36415; 77063; 77067; 80053; 83036; 84443

== ENCOUNTER → 2022-08-23 | Outpatient (CLI) | payer OTHER, SELFPAY ==
[2022-08-23 09:11] LABS: Cholesterol 241 mg/dL (200); High Density Lipoprotein 86 mg/dL; Triglycerides 67 mg/dL; Very Low Density Lipoprotein 13 mg/dL (5-40)
[2022-08-23 09:22] LABS: Vitamin D,25 Hydroxy 25.7 ng/mL
== END | disposition home or self-care (01) ==
LOC: PAVLAB 08:44
PROVIDERS: PCP Family Medicine; Referring Provider Obstetrics & Gynecology; Visit Provider Obstetrics & Gynecology
DX: E66.9 Obesity, unspecified (principal); Z68.42 Body mass index [BMI] 45.0-49.9, adult
CPT/HCPCS: 36415; 80061; 82306; 82533

== ENCOUNTER → 2022-09-14 | Outpatient (CLI) | payer OTHER, SELFPAY ==
[2022-09-14 18:35] LABS: Vitamin B12 621 pg/mL (211-911)
== END | disposition home or self-care (01) ==
LOC: MTLAB 16:43
PROVIDERS: PCP Family Medicine; Referring Provider Family Medicine; Visit Provider Family Medicine
DX: G62.9 Polyneuropathy, unspecified (principal)
CPT/HCPCS: 36415; 82607

== ENCOUNTER → 2022-09-20 | Outpatient (CLI) | payer OTHER, SELFPAY ==
[2022-09-20 18:00] LABS: CRP 5.77 mg/L (0.0-3.0); Rheumatoid Factor < 10.0 IU/mL (<15)
[2022-09-20 18:12] LABS: Erythrocyte Sedimentation Rate 7 mm/hr (0-30)
[2022-09-22 13:07] LABS: ANTINUCLEAR ANTIBODIES DIRECT Negative (Negative)
[2022-09-22 16:08] LABS: CCP IgG Antibodies 0 units (0-19)
== END | disposition home or self-care (01) ==
LOC: MTLAB 14:29
PROVIDERS: PCP Family Medicine; Referring Provider Family Medicine; Visit Provider Family Medicine
DX: G62.9 Polyneuropathy, unspecified (principal); I89.0 Lymphedema, not elsewhere classified
CPT/HCPCS: 36415; 85652; 86038; 86140; 86200; 86431

== ENCOUNTER → 2023-03-14 | Outpatient (CLI) | payer OTHER, SELFPAY ==
--- NOTE | 2023-03-14 15:28 | BD_ITS ---
STUDY: DUAL ENERGY X-RAY ABSORPTIOMETRY / DXA REASON FOR EXAM: Female, 42 years old. On hormone blockers -- ON HORMONE BLOCKERS TECHNIQUE: Bone Mineral Density (BMD) measurements of lumbar spine and bilateral hips were obtained. COMPARISON: None. FINDINGS: Lumbar Spine (L1-L4): g/cm2 (0.908) / T-score (-1.8) / Z-score (-1.4) Findings are suggestive of osteopenia with a moderate fracture risk. Left Femur Total: g/cm2 (1.124) / T-score (1.5) / Z-score (1.7) Left Femoral Neck: g/cm2 (0.934) / T-score (0.8) / Z-score (1.1) Right Femur Total: g/cm2 (1.030) / T-score (0.7) / Z-score (0.9) Right Femoral Neck: g/cm2 (0.989) / T-score (1.3) / Z-score (1.6) BD/Dexa Bone Density Study IMPRESSION: The patient is considered osteopenic as outlined below according to World Joseph Organization (WHO) criteria with a moderate fracture risk. Reference Information: The T-score is the number of standard deviations above or below the standard which is normal for young adults at their peak bone mineral density. The World Health Organization (WHO) interprets the T-scores as follows: Above -1 Normal bone density Between -1 and -2.5 Osteopenia Equal to / or below -2.5 Osteoporosis As a practical clinical guideline, osteopenia may be graded as follows: Mild -1 through -1.5 Moderate -1.6 through -2.0 Severe -2.1 through -2.4 The Z-score is the number of standard deviations above or below age-matched controls. A Z-score of less than -1.5 would be considered abnormal. References: 1. NIH Osteoporosis and Related Bone Diseases www osteo.org 2. International Society for Clinical Densitometry www iscd.org 3. National Osteoporosis Foundation www nof.org Electronically Signed: Berlin Gama MD at 14:34 EST ,
== END | disposition home or self-care (01) ==
LOC: OPBD 15:23
PROVIDERS: PCP Family Medicine; Referring Provider Obstetrics & Gynecology; Visit Provider Obstetrics & Gynecology
DX: M85.80 Other specified disorders of bone density and structure, unspecified site (principal); Z79.818 Long term (current) use of other agents affecting estrogen receptors and estrogen levels
CPT/HCPCS: 77080

== ENCOUNTER → 2023-07-12 | Outpatient (CLI) | payer OTHER, SELFPAY ==
--- NOTE | 2023-07-12 08:48 | BI_ITS ---
MAMMOGRAPHY - BILATERAL SCREENING REASON FOR EXAM: Female, 42 years old. Routine annual screening examination. PERTINENT HISTORY: Grandmother with breast cancer. TECHNIQUE: Digital bilateral breast wilma (3D mammographic acquisition) in the CC and MLO projections. 2-D mediolateral oblique (MLO) and craniocaudad (CC) views of both breasts were obtained. CAD: Full Field Digital Mammography with Computer Added Detection was performed. COMPARISON: Comparison is made with prior study June 21, 2022 and June 01, 2021. FINDINGS: Breast Composition: The breasts are almost entirely fatty. There are no dominant masses or suspicious calcifications. Stable fat-containing bilateral axillary lymph nodes. No other significant abnormalities are identified. There has been no significant change since the prior study. BI/SCRN MAMM (CAD)W/WILMA BILAT IMPRESSION: Stable bilateral screening mammogram. Yearly follow-up mammogram recommended. (A) ASSESSMENT CATEGORY: BIRADS Category 2: Benign. A letter regarding these results will be sent to the patient by the facility within 30 days. Approximately 10% of breast cancers are not detected by mammography. A normal mammogram should not delay biopsy of a clinically suspicious abnormality. [id number] Electronically Signed: Berlin Gama MD at 10:07 EDT ,
== END | disposition home or self-care (01) ==
LOC: OPBI 08:48
PROVIDERS: PCP Family Medicine; Referring Provider Obstetrics & Gynecology; Visit Provider Obstetrics & Gynecology
DX: Z12.31 Encounter for screening mammogram for malignant neoplasm of breast (principal)
CPT/HCPCS: 77063; 77067

== ENCOUNTER 2024-03-12 08:58 | Day surgery (SDC) | payer OTHER, SELFPAY ==
[2024-02-06 12:05] LABS: Absolute Neutrophil Count 2.6 X10^3/uL (2.0-7.7); Basophil# 0.03 X10^3/uL; Basophil% 0.6 % (0-1); Eosinophil# 0.07 X10^3/uL; Eosinophils% 1.4 % (0-5); Hematocrit 40.6 % (37-47); Hemoglobin 13.6 g/dL (12.0-15.0); Mean Corp Hgb Conc 33.5 g/dL (32-36); Mean Corpuscular Hgb 30.4 pg (27.0-32.0); Mean Corpuscular Volume 90.8 fL (81-99); Mean Platelet Vol. 10.8 fl (6.2-12.0); NRBC Flagged by Analyzer 0 % (0-5); Platelet Count 255 K/mm3 (150-450); RBC Distribution Width CV 11.4 % (11.6-14.6); RBC Distribution Width SD 37.7 fl (35.1-43.9); Red Blood Count 4.47 M/mm3 (4.2-5.4)
[2024-02-06 12:12] LABS: Anion Gap 4 (5-15); BUN 10 mg/dL (7-18); BUN/Creat Ratio 11.4 RATIO (10-20); Calcium,Total 9.1 mg/dL (8.5-10.1); Chloride 107 mmol/L (98-107); Creatinine, Serum 0.88 mg/dL (0.55-1.02); EST Glomerular Filtration Rate 75 mL/min (>60); Est Glom Filt Rate - Afr Amer 90 mL/min (>60); Glucose 86 mg/dL (74-106); Potassium 3.9 mmol/L (3.5-5.1); Sodium Level 138 mmol/L (136-145)
[2024-03-12] VITALS (10 sets, daily range): BP systolic 121–150; BP diastolic 70–93; PULSE 66–80; RESP 16–18; TEMP 36.2–36.6; O2SAT 92–100; BMI 49.1
--- NOTE | 2024-03-12 09:11 | PCM.PRE.AN2 ---
ASA Classification* ASA Classification ASA Classification: 3 Assessment & Plan Anesthesia* Anesthesia Assessment Anesthesia Assessment: Discussed sedation and/or anesthesia options, risks, benefits, and alternatives with patient/parents/legal guardian/POA. Questions invited. The patient/parents/legal guardian/POA seems to understand and agrees to proceed with anesthesia plan. Reviewed the physical assessment, medical history, allergy history and patient home medications list prior to surgery/procedure/anesthetic and documented any changes. Performed airway and anesthesia risk assessments. Anesthesia Type Anesthesia Type: General Anesthesia Focused Assessment* Airway Assessment Mouth opens: >3 cm Mallampati Score: II Focused Labs Anesthesia Preop lab: CBC WBC 5.0 K/mm3 (4.4-11.0) 02/06/24 09:03 RBC 4.47 M/mm3 (4.2-5.4) 02/06/24 09:03 Hgb 13.6 g/dL (12.0-15.0) 02/06/24 09:03 Hct 40.6 % (37-47) 02/06/24 09:03 Plt Count 255 K/mm3 (150-450) 02/06/24 09:03 CHEMISTRY Potassium 3.9 mmol/L (3.5-5.1) 02/06/24 09:03 Sodium 138 mmol/L (136-145) 02/06/24 09:03 BUN 10 mg/dL (7-18) 02/06/24 09:03 Creatinine 0.88 mg/dL (0.55-1.02) 02/06/24 09:03 Glucose 86 mg/dL (74-106) 02/06/24 09:03 TSH 1.94 uIU/mL (0.358-3.74) 06/21/22 14:10 COAG PT 12.9 SECONDS (11.7-14.9) 04/02/18 06:00 Pre-Assessment Diagnosis/Proposed Procedure Planned Operative Procedure(s): LEFT KNEE ARTHROSCOPY WITH MEDIAL MENISCUS ROOT REPAIR, CHONDROPLASTY Anesthesia History 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 When Was Last Pacemaker Check QUESTION #4 FULL TEXT: You/Your Family Experience fever (hyperthermia) with Anesthesia Last Oral Intake Last Oral intake: Last Oral Intake NPO since Meds taken in AM with sips of water? Meds patient instructed to take am of surgery PONV PONV - marine cargo specialist: PONV - marine cargo specialist Female Yes 03/02/24 08:37 HX of Motion Sickness No 03/02/24 08:37 HX of N/V After Surgery No 03/02/24 08:37 Non-Smoker Yes 03/02/24 08:37 Duration of Surgery greater Yes 03/02/24 08:37 than 60 minutes Number of Risk Factors 3 03/02/24 08:37 PONV Score Moderate Risk 03/02/24 08:37 Height & Weight Height & Weight: Anesthesia: Height & Weight Height 5 ft 5 in 08/22/23 08:50 Respiratory Assessment Respiratory Assessment - marine cargo specialist: Respiratory Tract Infection Hx - marine cargo specialist Hx Respiratory Tract Infection No 03/02/24 08:37 STOP Sleep Apnea STOP Sleep Apnea - marine cargo specialist: STOP Sleep Apnea - marine cargo specialist Hx Hypertension No 03/02/24 08:37 Hx Sleep Apnea Yes 03/02/24 08:37 CPAP Yes 03/02/24 08:37 BIPAP No 03/02/24 08:37 Do you snore loudly (louder than talking or can be heard Do you often feel tired/ fatigued/ sleepy during daytime? Has anyone observed you stop breathing during sleep? STOP Results Positive 03/02/24 08:37 QUESTION #5 FULL TEXT : Do you snore loudly (louder than talking or can be heard through closed doors)? 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 Specify any problems Hx of Preganancy in last 3 No 03/02/24 08:37 Months Nurse Filling Out Transfusion VCHRISTIN 03/02/24 08:37 & Questions: Date: 03/02/24 03/02/24 08:37 Time: 08:39 03/02/24 08:37 Patient unable to answer at this time (ie. confused, unrespo /Reproduction History /Reproductive History - marine cargo specialist: /Reproductive Hx- marine cargo specialist Hx Now No 03/02/24 08:37 Gestational Age (in weeks): EDC: Hx Hx Para Hx Section SAB No 03/02/24 08:37 Active Medications Active Medications: Current Medications Generic Name Dose Route Start Last Admin Trade Name Freq PRN Reason Stop Dose Admin Cefazolin Sodium 2 gm/ N/A 20 mls @ 400 mls/hr 03/12/24 10:30 IV 03/12/24 10:32 PREOP ONE Sodium Chloride 1,000 mls @ 15 mls/hr 03/12/24 09:05 IV 03/17/24 22:24 .Q48H [facility] History Family history of blood clots Family history of factor V Leiden mutation Wears contact lenses History of steroid therapy Non-smoker CPAP (continuous positive airway pressure) dependence Sleep apnea History of edema Left upper lobe pulmonary infiltrate Home Medications ?Medication ?Instructions ?Recorded ?Last Taken ?Type cholecalciferol (vitamin D3) 50 50 mcg PO DAILY 06/21/22 Unknown History mcg (2,000 unit) capsule relugolix 40 mg-estradiol 1 1 tab PO DAILY #90 tabs 12/10/23 Unknown Rx mg-norethindrone acetate 0.5 mg tablet ([place]) lisdexamfetamine 60 mg capsule 60 mg PO DAILY 3 months #90 caps 12/16/23 Unknown Rx berberine chloride 500 mg capsule 2,400 mg PO DAILY 03/02/24 Unknown History diosmin 300 mg tablet 2,000 mg PO DAILY 03/02/24 Unknown History meloxicam 15 mg tablet 15 mg PO DAILY 03/02/24 Unknown History Allergy/AdvReac Type Severity Reaction Status Date / Time No Known Allergies Allergy Verified 03/02/24 08:29 Family History Mother Hypertension History of hysterectomy for benign disease Father Hypertension Hyperlipemia Grandmother Breast cancer Other Hypercholesterolemia Surgical History Hx of tonsillectomy Tubal ligation status Hx of section Social History Smoking Status: Never smoker alcohol intake: current details: social substance use type: does not use caffeine: Yes what type of physical activity do you participate in: weight training frequency: 1-2 times per week seatbelt use: always do you feel safe at home: Yes additional social history: [employer] Patient works at [employer] Review of Systems (Anesthesia) ROS Narrative System reviewed and no additional complaints, except as documented.
[2024-03-12] MEDS: 0.9% Normal Saline (1000mL) 1,000 ML 15 ML IV (09:19)
[2024-03-12] MEDS: Cefazolin 2 GM in Syringe IV (10:15)
[2024-03-12] MEDS: Epinephrine (1 mg/ml) 1 MG/ML VIAL ×2 (11:00)
[2024-03-12] MEDS: Bupiv/Epi 0.25% 30 ML Vial (11:05)
--- NOTE | 2024-03-12 11:38 | PCM.OPRPT ---
Operative Report (Standard) Operative Information Date of Procedure: 03/12/24 Pre-Operative Diagnosis: 1. Left knee medial meniscal root tear 2. Left knee chondromalacia Post-Operative Diagnosis: 1. Left knee medial meniscal root tear 2. 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: Yes Customer Experience Consultant: Gloria Sanz Tasks completed by middle school assistant principal: Opening & closing and Implanting device Additional assistant professor of mathematics?: No Type of Anesthesia: General/Regional RN Documented Start/Stop Times: Operation Date: 03/12/24 10:15 Case Time Into Pre-Op 03/12/24 09:02 Out of Pre-Op 03/12/24 10:14 Into Room 03/12/24 10:15 Anesthesia Start 03/12/24 10:40 Procedure Start 03/12/24 10:40 Procedure End 03/12/24 11:15 Anesthesia End 03/12/24 11:20 Out of Room 03/12/24 11:20 Into Recovery 03/12/24 11:23 Procedure Start Time: 10:40 Procedure Stop Time: 11:15 Select all DRAINS/GRAFTS/IMPLANTS that apply: None (See op report below) Estimated Blood Loss: 10 cc Fluids Replaced: Per anesthesia record Specimen collected: No Description of surgery: Implants: Arthrex 4.75 mm PEEK swivel lock suture anchor Indications: This is a 43-year-old female seen in the outpatient setting for left knee pain. MRI was obtained. MRI demonstrated a meniscal root tear as well as chondromalacia. She had minimal degenerative changes noted on x-ray. I recommended surgical invention in the form of left knee arthroscopic medial meniscal root repair and chondroplasty. I reviewed the risks, benefits, alternatives to procedure with the patient at length and he agreed to proceed. Informed consent obtained in the outpatient setting. Description of procedure: Patient identified preoperative holding area by name, correct number, and date of . The operative extremity was marked. All questions were answered to the patient satisfaction. At time of her procedure, patient brought the operative suite positioned supine on standard operating table. All bony prominences well-padded. General anesthesia was administered and LMA was placed. A well-padded pneumatic tourniquet was applied to the operative upper thigh. An arthroscopic leg stahl was placed around the left lower extremity. A well-leg stahl was placed beneath the patient's right thigh. The foot of the bed was dropped 90 degrees. We prepped and draped the left lower extremity in normal, sterile orthopedic fashion. We performed timeout with all parties in attendance in agreement with the side, site, operation be performed. 3 g Ancef was administered by anesthesia staff prior to tourniquet inflation. I then exsanguinated the left lower extremity with Esmarch bandage. Tourniquet was inflated to 300 mmHg for approximately 21 minutes. Esmarch was removed. Standard anterolateral portal was then established 90 degrees of flexion. Blunt tipped trocar was used to enter the knee joint. Knee was filled with normal saline with epinephrine. Arthroscope was then introduced. Patellofemoral joint demonstrated mild grade 3-4 chondromalacia. Medial lateral gutters were unremarkable. Medial compartment was entered with valgus stress. Anterior medial portal was established in standard fashion. Probing the medial meniscus demonstrated full-thickness meniscal root tear. Focal grade III chondromalacia was noted approximately 1 x 1 cm along the medial aspect of the medial femoral condyle. Unstable chondral margin was debrided with the arthroscopic shaver. Tibial cartilage demonstrated grade I chondromalacia. Intercondylar notch was examined and ACL was pristine. Lateral compartment was entered with a [id number] stress. The lateral compartment was probed and the meniscus was stable without significant tearing noted. I then returned to the medial compartment. I elected to proceed with meniscal root repair. I debrided the footprint of the meniscus and decorticated with a rasp. 2 fiber link sutures were passed through the posterior horn 3-4 mm from the tear margin with a scorpion meniscal suture passer. Sutures were then retrieved out an accessory far medial portal. I then introduced the drill guide for the tibial tunnel. This was placed at the [place] footprint. 2 cm incision was made along the anterior medial tibial crest. I then drilled to our planned trajectory with a flip cutter. The flip cutter was deployed and a 1 cm socket was established in the subchondral bone. A nitinol wire was then passed through the tibial tunnel after the drill was removed. Sutures were shuttled through the tibial tunnel. Sutures were passed through the eyelet of a swivel lock anchor. Approximately 1 cm distal to our tunnel, I drilled and tapped for the swivel lock anchor. Suture was tensioned within the anchor and the anchor was successfully placed with excellent cortical purchase. Sutures were cut. The meniscus was probed and appeared stable. The knee was anesthetized with 30 cc total Quarter percent bupivacaine with epinephrine. Portal sites were closed in interrupted [id number] fashion with 3-0 nylon suture. Bulky sterile compression system was applied. Patient was safely awakened in the operative suite and extubated. A T ROM brace was placed locked in full extension and set from 0 to 90 degrees. She was transferred to his gurney and subsequent to PACU in stable condition. She underwent femoral nerve block in the PACU to assist with postoperative analgesia. Need for skilled assistant professor of mathematics: Gloria Sanz PA-C was critical to the outcome of the case. During the course of the procedure the physician assistant professor of mathematics played a vital role. Her intimate knowledge of my steps in the procedure aided in safe and expedient completion of the procedure. The PA played a vital role in positioning particularly in obtaining the appropriate positioning. The PA was also vital in the retraction of soft tissues during the exposure and protecting vital structures. The PA was also vital and obtaining meniscus reduction and assisting with hardware placement. She also played a vital role in closure and brace application with my direct supervision. Postoperative plan: Follow-up in 2 weeks for suture removal Nonweightbearing x 6 weeks Range of motion 0-90 degrees x 6 weeks Physical therapy to start next week Aspirin 81 mg twice daily for DVT prophylaxis x 6 weeks Multimodal pain management in the form of Tylenol, NSAIDs, opioid as prescribed Surgical Findings: See dictated operative report Complications Complications: No Admit VTE Documentation VTE Present on Admission: No VTE Mechan Device Prophylaxis: SCD's and Thigh High LUIS Hose VTE Pharm Prophylaxis ordered?: Yes
[2024-03-12] MEDS: Ketorolac 15 MG/ML Vial IV (11:57)
--- NOTE | 2024-03-12 12:45 | PCM.POST.ANE ---
Anesthesia: Postop Eval I Current Vital Signs Temperature: 97.2 F Pulse Rate: 69 Blood Pressure: 132/70 Respiratory Rate: 16 Pulse Ox: 98 Oxygen Delivery Method: Room Air Assessment Airway patent: Yes Spontaneous unlabored respirations: Yes Mental status: Awake and Calm nausea: No Vomiting: No Anesthesia Complication: No Fluid Hydration Crystalloid volume administer (ml): 1,000 Total IV fluid infused: 1,000 Progress Note Anesthesia document: Postop Eval 1 completed: Yes
[2024-03-12] MEDS: oxyCODONE 5 MG Tablet 10 MG PO (12:56)
== END 2024-03-12 14:04 | disposition home or self-care (01) ==
LOC: SDC 09:02 → AC 09:10
PROVIDERS: PCP Family Medicine; Referring Provider Student in an Organized Health Care Education/Training Program; Visit Provider Student in an Organized Health Care Education/Training Program
PROC: (CPT 29870; principal; 2024-03-12 09:55)
DX: S83.242A Other tear of medial meniscus, current injury, left knee, initial encounter (principal); Z68.43 Body mass index [BMI] 50.0-59.9, adult; X58.XXXA Exposure to other specified factors, initial encounter; M94.262 Chondromalacia, left knee; G47.30 Sleep apnea, unspecified; E66.9 Obesity, unspecified; F50.819 Binge eating disorder, unspecified; Z79.899 Other long term (current) drug therapy; Z83.2 Family history of diseases of the blood and blood-forming organs and certain disorders involving the immune mechanism
CPT/HCPCS: 29882; 01400; 64447; 36415; 80048; 81241; 85025; C1713; A4216; J2405

== ENCOUNTER → 2024-07-23 | Outpatient (CLI) | payer OTHER, SELFPAY ==
--- NOTE | 2024-07-23 13:33 | BI_ITS ---
EXAM: SCRN MAMM (CAD)W/WILMA BILAT DATE: 07/23/2024 CLINICAL HISTORY: F, Age 43 y/o , SCREENING FOR BREAST CANCER Grandmother with breast cancer. BREAST CANCER RISK ASSESSMENT: Not assessed. TECHNIQUE: Bilateral screening digital breast tomosynthesis with 2D and 3D images. Computer aided detection. COMPARISON: Prior exam(s) dated July 12, 2023.. FINDINGS: TISSUE DENSITY: The breast tissue is almost entirely fatty. Bilateral Breast Mammographic Findings: No significant masses, calcifications or other abnormalities are identified. No suspicious masses, areas of developing architectural distortion, or suspicious calcifications. There has been no significant interval change. BI/SCRN MAMM (CAD)W/WILMA BILAT IMPRESSION: OVERALL FINAL ASSESSMENT: BIRADS 1 NEGATIVE RECOMMENDATION: Routine annual follow-up in 1 Year A letter with findings and recommendations will be mailed to the patient. Reading Location: [place] [id number]
== END | disposition home or self-care (01) ==
LOC: OPBI 13:32
PROVIDERS: PCP Family Medicine; Referring Provider Obstetrics & Gynecology; Visit Provider Obstetrics & Gynecology
DX: Z12.31 Encounter for screening mammogram for malignant neoplasm of breast (principal)
CPT/HCPCS: 77063; 77067

== ENCOUNTER 2024-07-30 09:07 | Outpatient (CLI) | payer OTHER, SELFPAY ==
[2024-07-30 10:47] LABS: Absolute Lymphocyte Count 2.08 X10^3/uL (0.83-4.51); Absolute Neutrophil Count 3.1 X10^3/uL (2.0-7.7); Basophil# 0.02 X10^3/uL; Basophil% 0.4 % (0-1); Eosinophil# 0.12 X10^3/uL; Eosinophils% 2.1 % (0-5); Hematocrit 38.2 % (37-47); Hemoglobin 13.3 g/dL (12.0-15.0); Lymphocyte # 2.08 X10^3/ul (0.83-4.51); Lymphocyte % 37.1 % (19-41); Mean Corp Hgb Conc 34.8 g/dL (32-36); Mean Corpuscular Hgb 31.3 pg (27.0-32.0); Mean Corpuscular Volume 89.9 fL (81-99); Mean Platelet Vol. 10.8 fl (6.2-12.0); Monocyte# 0.32 X10^3/uL; Monocyte% 5.7 % (0-10); NRBC Flagged by Analyzer 0 % (0-5); Neutrophil # 3.07 X10^3/uL (2.7-7.7); Neutrophil % 54.7 % (47-70); Platelet Count 227 K/mm3 (150-450); RBC Distribution Width CV 11.7 % (11.6-14.6); Red Blood Count 4.25 M/mm3 (4.2-5.4); White Blood Count 5.6 K/mm3 (4.4-11.0)
[2024-07-30 11:02] LABS: Hemoglobin A1c 5.4 % (<=5.6)
[2024-07-30 11:34] LABS: ALB/GLOB Ratio 1.6 RATIO (0.9-2.4); AST(SGOT) 19 U/L (<=31); Alanine Aminotransfer ALT/SGPT 18 U/L (<=34); Alkaline Phosphatase 48 U/L (35-104); Anion Gap 11 (5-15); BUN 12 mg/dL (4-19); BUN/Creat Ratio 14.5 RATIO (10-20); Calcium,Total 9.2 mg/dL (7.6-11.0); Carbon Dioxide 24.1 mmol/L (21.0-32.0); Chloride 102 mmol/L (98-108); Cholesterol 190 mg/dL (<=200); Creatinine, Serum 0.85 mg/dL (0.70-1.20); EST Glomerular Filtration Rate 87 (>60); Globulin 2.5 g/dL (2.2-4.2); Glucose 96 mg/dL (70-99); High Density Lipoprotein 59 mg/dL; Low Density Lipoprotein Calc. 116 mg/dL; Potassium 3.9 mmol/L (3.3-5.1); Protein, Total 6.5 g/dL (5.9-8.4); Sodium Level 137 mmol/L (133-145); Total Bilirubin 0.55 mg/dL (0.00-1.30); Triglycerides 75 mg/dL; Very Low Density Lipoprotein 15 mg/dL (5-40); cholesterol:hdl ratio screen 3.23
[2024-07-30 11:45] LABS: Vitamin D,25 Hydroxy 31.3 ng/mL (30-100)
== END 2024-07-30 23:59 | disposition home or self-care (01) ==
LOC: MTLAB 09:08
PROVIDERS: PCP Family Medicine; Referring Provider Obstetrics & Gynecology; Visit Provider Obstetrics & Gynecology
DX: F50.819 Binge eating disorder, unspecified (principal); Z68.43 Body mass index [BMI] 50.0-59.9, adult
CPT/HCPCS: 36415; 80053; 80061; 82306; 83036; 84443; 85025

== ENCOUNTER → 2024-11-25 | Outpatient (CLI) | payer OTHER, SELFPAY ==
--- NOTE | 2024-11-25 13:02 | VDLE_ITS ---
Reason For Study Reason For Study: R/O DVT RIGHT LEFT GSV is normal. CFV is compressible, spontaneous, phasic, competent, CFV is compressible, spontaneous, phasic, competent and demonstrates normal augmentation. and demonstrates normal augmentation. FV is compressible, spontaneous, phasic, competent and demonstrates normal augmentation. POP V is compressible, spontaneous, phasic, competent and demonstrates normal augmentation. T/P Trunk is compressible. PTV is compressible. RT PerV is compressible. Procedure This is a venous duplex using B-mode, color flow and spectral Doppler. Exam performed in department. The exam was diagnostic. A preliminary report was called and/or faxed to Jane Ravi office. VL/Venous Duplex US, Unilateral Interpretation Summary Deep veins of the right lower extremity are patent and compressible segmentally . There is no evidence of right lower extremity deep vein thrombosis. The right great saphenous vein appears patent a nd compressible segmentally. Ordering Physician: Jane Rosas Referring Physician: Angie Hart Performed By: Alvin Azul RVT
== END | disposition home or self-care (01) ==
LOC: CVS 12:59
PROVIDERS: PCP Family Medicine; Referring Provider Nurse Practitioner Family; Visit Provider Nurse Practitioner Family
DX: M79.661 Pain in right lower leg (principal)
CPT/HCPCS: 93971

== ENCOUNTER → 2024-12-03 | Outpatient (CLI) | payer OTHER, SELFPAY ==
--- NOTE | 2024-12-03 08:58 | US_ITS ---
PROCEDURE: PELVIC W/ TRANSVAGINAL REASON FOR EXAM: AUB TECHNIQUE: Procedure Code: [id number] Modality: US Procedure: PELVIC W/ TRANSVAGINAL COMPARISON: None FINDINGS: Measurements: Uterus: 12.7 cm x 7.7 cm x 6.3 cm with a volume of 318.05 mL Endometrial Thickness: 4.5 mm Right Ovary: 3.8 cm x 2.1 cm x 1.2 cm with a volume of 5.22 mL. Left Ovary: 3 cm x 2.5 cm x 2.4 cm with a volume of 9.13 mL. TRANSABDOMINAL: Uterus: Enlarged fibroid uterus. There is a 3 cm x 2.3 cm 2.9 cm fundal fibroid. Endometrium: Unremarkable. Right ovary: Normal size and echotexture. Left ovary: Normal size and echotexture. Other: No large pelvic mass identified. Transvaginal sonography was performed to better visualize the endometrium. TRANSVAGINAL: Uterus: Anteverted. Enlarged fibroid uterus. Endometrium: Normal echotexture. Right ovary: Normal size and echotexture. Left ovary: Normal size and echotexture. Other adnexal findings: None. Cul-de-sac: No free intraperitoneal fluid identified. Tenderness: No tenderness US/Pelvic w/ Transvaginal IMPRESSION: Enlarged fibroid uterus. Reading Location: [place] [id number]
== END | disposition home or self-care (01) ==
LOC: OPUS 08:56
PROVIDERS: PCP Family Medicine; Referring Provider Obstetrics & Gynecology; Visit Provider Obstetrics & Gynecology
DX: N93.9 Abnormal uterine and vaginal bleeding, unspecified (principal)
CPT/HCPCS: 76830; 76856